=== PATIENT | male | born 1995 | race Caucasian/White ===

== ENCOUNTER 2021-04-07 10:01 | Emergency (ER) | payer OTHER ==
[~2021-04-07] VITALS: Ht 182.9 cm; Wt 95.3 kg
--- NOTE | 2021-04-07 10:40 | REP ---
INDICATION: NEURO DEFECITS, VISION CHANGES. COMPARISON: None. TECHNIQUE: Helical scanning is acquired. 5 mm axial images were reformatted. Coronal MPR images were generated. FINDINGS: Bone window settings demonstrate an intact bony calvarium. There is no evidence of skull fracture or incidental bony calvarial lesion. There is mild mucosal thickening affecting the sphenoid and ethmoid air cells. The visualized paranasal sinuses appear otherwise clear. No intraorbital abnormality is seen. On soft tissue window setting images; the lateral, third, and fourth ventricles are normal in size and position. Bowen-white differentiation pattern is normal above and below the tentorium. There are is no evidence of intracranial hemorrhage. No mass, edema, infarction, or midline shift is seen. No extra-axial fluid collection is appreciated. IMPRESSION: Mild mucosal thickening affecting the sphenoid and ethmoid sinuses. Otherwise negative noncontrast head CT study.. <Electronically signed by Ronnie Tena > 04/07/21 1036
[2021-04-07] MEDS ORDERED: ACETAMINOPHEN TAB 650MG DOSE (2X325MG) PO ONE (11:05)
[2021-04-07] MEDS ORDERED: KETOROLAC TROMETHAMINE 10 MG TAB PO ONE (11:10)
[2021-04-07] MEDS ORDERED: diphenhydrAMINE 25MG CAP PO ONE (11:20)
[2021-04-07] MEDS ORDERED: METOCLOPRAMIDE 10 MG TAB PO ONE (11:20)
[2021-04-07] MEDS ORDERED: NS 500 ML IV ONE (11:20)
[2021-04-07] MEDS ORDERED: ALLE180T33 PO (11:33)
[2021-04-07] MEDS ORDERED: MULT1TAB8 PO (11:33)
[2021-04-07 13:22] VITALS: BP 116/57
--- NOTE | 2021-04-07 20:38 | ECGEPIP ---
[facility] - ED Test Date: 2021-04-07 Pat Name: OLIVIA DELEON Department: Room: - Gender: Male [employer]: : 1995 Requested By: Joya Barragan Order Number: [id number] Reading MD: Ivonne Baez Measurements Intervals [place] Rate: 58 P: 3 VA: 150 QRS: 55 QRSD: 112 T: 14 QT: 392 QTc: 384 Interpretive Statements Sinus bradycardia with sinus arrhythmia No prior Electronically Signed on 04-07-2021 20:38:00 EDT by Ivonne Baez
== END 2021-04-07 13:27 | disposition home or self-care (01) ==
LOC: M ED 10:01
DX: R51.9 Headache, unspecified (principal); Z88.0 Allergy status to penicillin